=== PATIENT | male | born 2000 | race African-American/Black ===

== ENCOUNTER 2024-04-18 08:50 | Outpatient (REF) | payer OTHER, SELFPAY ==
--- NOTE | ~2024-04-18 | XR_ITS ---
EXAMINATION: XR HAND, RIGHT CLINICAL INFORMATION: Right hand pain. COMPARISON: None available. TECHNIQUE: PA, lateral, and oblique views of the right hand. FINDINGS: The bones and soft tissues are normal. No fracture. Alignment is anatomic. Joint spaces are maintained. No erosions or soft tissue calcifications. XR/XR hand RT min 3V IMPRESSION: Normal right hand radiographs.
== END 2024-04-18 08:51 | disposition home or self-care (01) ==
LOC: HO.HOSX 08:50
PROVIDERS: Visit Provider Physician Assistant
DX: S63.404A Traumatic rupture of unspecified ligament of right ring finger at metacarpophalangeal and interphalangeal joint, initial encounter (principal)
CPT/HCPCS: 73130; 99202

== ENCOUNTER 2024-04-18 14:38 | Outpatient (AMB) | payer OTHER, SELFPAY ==
--- NOTE | 2024-04-18 14:56 | MHC.OFFVIS ---
Vital Signs 04/18/24 15:00 Height 5 ft 6.5 in Weight 220 lb BMI 35.0 Intake Visit Reasons: New Pt - Right 4th Digit, Jammed Finger Intake Note: Susanne a 23 year old right hand dominant male who presents today for an evaluation of right 4th digit. Patient reports towards the end of December he was playing basketball when he jammed while catching the ball. No previous tx. He continues to have ongoing pain in his whole finger as well as weakness. Denies any numbness or tingling. Allergies No Known Allergies [No Known Allergies*] Allergy (Unverified 04/18/24 15:03) Medication List - Last Reconciled 04/18/24 by Andrew Tipton PA-C No Known Home Meds HPI HPI New Pt - Right 4th Digit, Jammed Finger: Details: 23-year-old right hand dominant male who presents to the office today for evaluation of right 4th injury during end of December after jamming the finger while catching the ball during a basketball game. He continues to have ongoing pain in his whole finger as well as swelling and weakness. He is unable to extend his finger due to the pain. He denies any numbness or tingling. He has not had any treatment in the past. [facility] Social History (Updated 04/18/24 @ 14:59 by JAYDEN River) Patient Tobacco Use Status: Never used Tobacco Current occupational status: employed Current occupation: finacial advisor, right hand dominant Review of Systems Const All systems reviewed & are unremarkable except as noted in HPI and below Physical Exam Vital Signs: BMI result Body Mass Index 35.0 Const General: cooperative, healthy appearing, comfortable, no acute distress, well developed and alert Orientation/consciousness: patient oriented x3 HEENT Head: Yes normal to inspection, Yes normocephalic and Yes atraumatic Eyes General: appearance normal, both eyes and all related structures Resp Effort & Inspection: normal respiratory effort and able to speak in complete sentences Cardio Rate: regular rate Peripheral pulses: Peripheral pulses 2+ throughout GI Palpation (GI): Soft to palpation Skin Lesions: no lesions Rashes: no rashes Neuro General: patient oriented x3 Extrem Other: Right ring finger: Normal to inspection with minimal swelling along the radial aspect of the PIP joint. Mild discomfort with stress testing. He can make a full fist and fully extend digits. NVI. Results Reviewed Results Reviewed: Xrays were obtained in the office today and personally reviewed by me of the right hand are negative for acute fracture or dislocations. Assessment & Plan Assessment & Plan (1) Traumatic rupture of ligament of right ring finger: Code(s): S63.404A - Traumatic rupture of unspecified ligament of right ring finger at metacarpophalangeal and interphalangeal joint, initial encounter Category: Medical Qualifiers: Encounter type: initial encounter Qualified Code(s): S63.404A - Traumatic rupture of unspecified ligament of right ring finger at metacarpophalangeal and interphalangeal joint, initial encounter Plan Injury occurred approximately 3 months ago therefore I feel as though any ligamentous injury that initially occurred has scarred down. He will begin a course of occupational therapy to work on ROM and soda fountain operator strengthening. He can increase activity as tolerated and see back as needed. Orders: Orders XR hand RT min 3V Today M79.641 - Pain in right hand OT Evaluation and Treatment Today S63.404A - Traumatic rupture of unspecified ligament of right ring finger at metacarpophalangeal and interphalangeal joint, initial encounter Patient Instructions: Scribed for Andrew Tipton PA-C, by [facility] biller, on 04/18/2024 at 2:30 PM EST.? I, Andrew Tipton PA-C, have personally reviewed and agree with the information entered by the scribe. Coding Level of Care Code New Pt Level 3 (81986) Diagnoses Traumatic rupture of ligament of right ring finger, initial encounter S63.404A Encounter type: initial encounter
[2024-04-18 15:00] VITALS: BMI 35.0
--- OUTSIDE RECORDS SUMMARY | 2024-04-18 18:17 | XMS_ITS | Continuity of Care Document ---
Author Organization [facility] ter Address [address] [place] [address]- Care Team Providers Care Communications And Signals Supervisor Name Role Phone Vicki Adbi NP Primary Care Physician Encounter [facility] Date(s): 05/29/21 - 05/29/[address] [address]- Encounter Diagnosis Nasal bone fractures(Final) - 05/29/21 Discharge Disposition: A-D/C Home Attending Physician: Nnamdi Peterson DO Admitting Physician: Nnamdi Peterson DO Referring Physician: Not on Staff, Referring MD Allergies, Adverse Reactions, Alerts Substance Reaction Severity Status NKA Active Immunizations Given and Recorded Vaccine Date Status Refusal Reason influenza virus vaccine, inactivated 01/29/20 Give n influenza virus vaccine, inactivated 08/06/16 Give n influenza virus vaccine, inactivated 1 11/27/12 Gi deni Human Papillomavirus Vaccine 2 08/06/16 Given Human Papillomavirus Vaccine 3 05/26/15 Given Human Papillomavirus Vaccine 4 03/07/15 Given Meningococcal Conjugate Vaccine 5 08/06/16 Given Hepatitis A Pediatric Vaccine 6 08/06/16 Given Hepatitis A Pediatric Vaccine 7 03/07/15 Given Varicella Virus Vaccine 8 11/27/12 Given Varicella Virus Vaccine 9 06/30/00 Given Meningococcal Polysaccharide Vaccine 10 02/09/11 G iven tetanus-diphtheria toxoids (Td) 03/01/10 Given influ virus vac, H1N1, inactive(oldterm) 11 10/02/09 Given FluMist (oldterm) 12 10/02/09 Given Diphth/Pertussis,Acel/Tetanus (oldterm) 13 07/31/03 Given Diphth/Pertussis,Acel/Tetanus (oldterm) 14 02/23/01 Given Diphth/Pertussis,Acel/Tetanus (oldterm) 15 03/01/00 Given Diphth/Pertussis,Acel/Tetanus (oldterm) 16 99 Given Diphth/Pertussis,Acel/Tetanus (oldterm) 17 99 Given Measles/Mumps/Rubella Virus Vaccine 18 05/20/03 Gi deni Measles/Mumps/Rubella Virus Vaccine 19 06/30/00 Gi deni Poliovirus Vaccine, Inactivated 20 05/20/03 Given Poliovirus Vaccine, Inactivated 21 03/01/00 Given Poliovirus Vaccine, Inactivated 22 99 Given Poliovirus Vaccine, Inactivated 23 99 Given Haemophilus B Conj Vaccine (oldterm) 24 09/19/00 G iven Haemophilus B Conj Vaccine (oldterm) 25 03/01/00 G iven Haemophilus B Conj Vaccine (oldterm) 26 99 G iven Haemophilus B Conj Vaccine (oldterm) 27 99 G iven Hepatitis B Vaccine (old term) 28 03/01/00 Given Hepatitis B Vaccine (old term) 29 99 Given Hepatitis B Vaccine (old term) 30 99 Given 1Admin Note: vis 05/29/2012 Fluzone 2Result Comment: [08/06/2016] LOWER ARM 3Result Comment: [05/26/2015] ORDERED BY GABBY CONTEH MD 4Result Comment: [03/10/2015] ordered by Gabby conteh MD 5Result Comment: [08/06/2016] LOWER ARM 6Result Comment: [08/06/2016] upper arm 7Result Comment: [03/10/2015] ordered by Gabby Conteh MD 8Admin Note: VARIVAX/VARICELLA #2 9Admin Note: ADM BY RN 10Admin Note: Vis 12/05 given 11Admin Note: Vis given 12Admin Note: vis given 13Admin Note: ADM BY RN 14Admin Note: ADM BY RN 15Admin Note: ADM BY RN 16Admin Note: ADM BY RN 17Admin Note: ADM BY RN 18Admin Note: ADM BY RN 19Admin Note: ADM BY RN 20Admin Note: ADM BY RN 21Admin Note: ADM BY RN 22Admin Note: ADM BY RN 23Admin Note: ADM BY RN 24Admin Note: ADM BY RN 25Admin Note: ADM BY RN 26Admin Note: ADM BY RN 27Admin Note: ADM BY RN 28Admin Note: ADM BY RN 29Admin Note: ADM BY RN 30Admin Note: ADM BY RN Medications cetirizine 10 mg oral tablet 1 tablet, By Mouth, Daily, PRN NEEDED FOR ALLERGY SYMPTOMS, # 90 tablet, 0 Refills, Maintenance,05/25/21 7:47:00 EDT, [facility], 169, cm, 04/02/21 11:30:00 EDT, Height Start Date: 05/25/21 Status: Ordered Problem List Condition Effective Dates Status Health Status Inform ant Childhood obesity(Confirmed) Active School failure(Confirmed) Active Healthcare maintenance(Confirmed) Active Results Radiology Reports * Exam Date Time Procedure Performing Provider Status 05/29/21 5:05 PM Nasal Bone Comp Min 3 Views Jono Villalta; Tish (Verified) Notes: (Nasal Bone Comp Min 3 Views) Reason For Exam: Other: RESULT: Nasal Bone Comp Min 3 Views Nasal Bone Comp Min 3 Views Hx of Present Illness: Nose injury. Patient struck by another person's elbow while playing basketball 30 minutes [place].; Reason: Other:; Clinical Question(s): Fracture COMPARISON: None TECHNIQUE: 4 views of the paranasal sinuses. FINDINGS: Nondisplaced bilateral nasal bone fractures. Sinus air-fluid levels. Orbital polo are intact. IMPRESSION: Nondisplaced bilateral nasal bone fractures. WSN: [id number] Ordering Physician: Jone Motta Dictated By: Basil Luna MD Dictated Date/Time: 05/29/21 5:08 pm Reviewed By: Basil Luna MD Signed By: Basil Luna MD Signed Date/Time: 05/29/21 5:08 pm Transcribed By: YOAN Transcribed Date/Time: 05/29/21 5:06 pm Vital Signs Most recent to oldest [Reference Range]: 1 2 3 Oxygen Saturation [94-100 %] 100 % (05/29/21 6:22 PM) 96 % (05/29/21 4:01 PM) 100 % (05/29/21 3:54 PM) Pulse Rate [55-90 bpm] 62 bpm (05/29/21 6:22 PM) 91 bpm *H* (05/29/21 4:01 PM) 108 bpm *H* (05/29/21 3:54 PM) Blood Pressure [90-138/55-84 mm Hg] 119/61mm Hg (05/29/21 6:22 PM) 133/72mm Hg (05/29/21 4:01 PM) Respiratory Rate [16-30 br/min] 16 br/min (05/29/21 6:22 PM) 18 br/min (05/29/21 4:01 PM) Temperature [96.8-100.4 DegF] 97.7 DegF (05/29/21 6:22 PM) 98.8 DegF (05/29/21 4:01 PM) Mode of Delivery (Oxygen) Room air (05/29/21 6:22 PM) Room air (05/29/21 4:01 PM) Room air (05/29/21 3:54 PM) Temperature Route Oral (05/29/21 6:22 PM) Oral (05/29/21 4:01 PM) Social History Social History Type Response Smoking Status Never smoker; Tobacc o user in household: No entered on: 07/30/14 Sex
--- OUTSIDE RECORDS SUMMARY | 2024-04-18 18:17 | XMS_ITS | Continuity of Care Document ---
Author Organization [facility] Address [address] [place] [address]- Care Team Providers Care Air Launch Weapons Technician Name Role Phone Jin ODOM, Vicki Primary Care Physician [phone] Encounter [facility] Date(s): 10/09/20 - 11/08/20 [facility]/[address] [address]- Allergies, Adverse Reactions, Alerts Substance Reaction Severity [...] BY RN 30Admin Note: ADM BY RN Problem List Condition Effective Dates Status Health Status Inform ant Childhood obesity(Confirmed) Active School failure(Confirmed) Active Healthcare maintenance(Confirmed) Active Social History Social History Type Response Smoking Status Never smoker; Tobacc o user in household: No entered on: 07/30/14 Sex
--- OUTSIDE RECORDS SUMMARY | 2024-04-18 18:17 | XMS_ITS | Continuity of Care Document ---
Author Organization [facility] Address [address] [place] [address]- Care Team Providers Care Long Term Care Administrator Name Role Phone Jin CHEMICAL LABORATORY CHIEF, Vicki Primary Care Physician Encounter [facility] Date(s): 06/10/21 - 07/10/21 [facility]/[address] [address]- Allergies, Adverse Reactions, Alerts Substance Reaction Severity Status NKA Active Immunizations Given and Recorded Vaccine Date Status Refusal Reason tetanus/diphtheria/pertussis, acel(Tdap) 06/05/21 Given SARS-CoV-2 (COVID-19) mRNA BNT-162b2 vac 05/01/21 Recorded SARS-CoV-2 (COVID-19) mRNA BNT-162b2 vac 04/10/21 Recorded influenza virus vaccine, inactivated 01/29/20 Give n influenza virus vaccine, inactivated 08/06/16 Give n influenza virus vaccine, inactivated 1 11/27/12 Gi dein Human Papillomavirus Vaccine 2 08/06/16 Given Human [...] ARM 3Result Comment: [05/26/2015] ORDERED BY GABBY GALLAGHER MD 4Result Comment: [03/10/2015] ordered by Gabby gallagher MD 5Result Comment: [08/06/2016] LOWER ARM 6Result Comment: [08/06/2016] upper arm 7Result Comment: [03/10/2015] ordered by Gabby Gallagher MD 8Admin Note: VARIVAX/VARICELLA #2 9Admin Note: [...] 0 Refills, Maintenance,05/25/21 7:47:00 EDT, [facility], 169, cm, 04/02/21 11:30:00 EDT, Height Start Date: 05/25/21 Status: Ordered Problem List Condition Effective Dates Status Health Status Inform ant Childhood obesity(Confirmed) Active School failure(Confirmed) Active Healthcare maintenance(Confirmed) Active Social History Social History Type Response Smoking Status Never smoker; Tobacc o user in household: No entered on: 07/30/14 Sex
--- OUTSIDE RECORDS SUMMARY | 2024-04-18 18:17 | XMS_ITS | Continuity of Care Document ---
Author Organization [facility] Address [address] [place] [address]- Care Team Providers Care Functional Skills Tutor Name Role Phone Jin ODOM, Vicki Primary Care Physician Encounter [facility] Date(s): 10/13/20 - 11/12/[address] [address]- Attending Physician: Admkleber, Sammi Admitting Physician: AdmtrSammi Referring Physician: Admtr, Ar8 Allergies, Adverse Reactions, Alerts Substance Reaction Severity [...]
--- OUTSIDE RECORDS SUMMARY | 2024-04-18 18:17 | XMS_ITS | Continuity of Care Document ---
Author Organization [facility] Address [address] [place] [address]- Care Team Providers Care Obstetrics Teacher Name Role Phone Jin ODOM, Vicki Primary Care Physician [phone] Encounter [facility] Date(s): 02/01/24 - 03/02/24 [facility]/[address] [address]- Allergies, Adverse Reactions, Alerts No Known Allergies Immunizations Given and Recorded Vaccine Date Status Refusal Reason influenza virus vaccine, inactivated 02/01/24 Give n influenza virus vaccine, inactivated 01/19/22 Angel rded influenza virus vaccine, inactivated 01/29/20 Give n influenza virus vaccine, inactivated 08/06/16 Give n influenza virus vaccine, inactivated 1 11/27/12 Gi deni SARS-CoV-2 mRNA ([id number]) vax 02/09/22 Recorded tetanus/diphtheria/pertussis, acel(Tdap) 06/05/21 Given tetanus/diphtheria/pertussis, acel(Tdap) 04/08/15 Recorded SARS-CoV-2 (COVID-19) mRNA BNT-162b2 vac 05/01/21 Recorded SARS-CoV-2 (COVID-19) mRNA BNT-162b2 vac 04/10/21 Recorded Human Papillomavirus Vaccine 2 08/06/16 Given Human [...] 0 Refills, Maintenance,05/25/21 7:47:00 EDT, [facility], 169, cm, 04/02/21 11:30:00 EDT, Height Start Date: 05/25/21 Status: Ordered diclofenac sodium 75 mg oral delayed release tablet 1 tablet = 75 mg, By Mouth, 2 times a day, with food, # 42 tablet, 0 Refills, Maintenance, 10/05/2114:49:00 EST, EC Tablet, [id number], Partial fill upon patient request if the prescription is for a schedule II opioid drug., 169, cm, 10/05/21... Start Date: 10/05/21 Stop Date: 10/26/21 Status: Ordered ibuprofen 600 mg oral tablet 600 mg, 1, tablet, By Mouth, 4 times a day, PRN, with food or milk, # 30 tablet, Refills 0, Tot. Refills 0, Maintenance, Pain , Moderate, 03/17/23 17:33:00 EDT, Route to Pharmacy Electronically, [facility]/pharmacy #[id number], Partial fill upon patient request if... Start Date: 03/17/23 Status: Ordered Problem List Condition Confirmation Course Effective Dates Status Health St atus Informant Acanthosis nigricans Confirmed Active Childhood obesity Confirmed Active School failure Confirmed Active Healthcare maintenance Confirmed Active Obese class I Confirmed Active Social History Social History Type Response Smoking Status Never smoker; Tobacc o user in household: No entered on: 07/30/14 Sex Male Patient Care team information Care Team Personnel Name: Vicki Abdi NP Position: [facility] PCO Associate Professional Member Role: PCP Address: Address: [address] [place] [address]- Care Team Related Persons Name: TIFFANIE FERGUSONRA Address: home [address] [address]
--- OUTSIDE RECORDS SUMMARY | 2024-04-18 18:17 | XMS_ITS | Continuity of Care Document ---
Author Organization [facility] Address [address] [place] [address]- Care Team Providers Care Data Collection Technician Name Role Phone Vicki Abdi NP Primary Care Physician [phone] [place] [facility] [place] 02/23/23 - 03/25/23 [facility]/[place] [address]- [place] Allergies, Adverse Reactions, Alerts No Known Allergies Immunizations Given and Recorded Vaccine Date Status Refusal Reason influenza virus vaccine, inactivated 01/19/22 Angel rded influenza virus vaccine, inactivated 01/29/20 Give n influenza virus vaccine, inactivated 08/06/16 Give n influenza virus vaccine, inactivated 1 11/27/12 Gi deni tetanus/diphtheria/pertussis, acel(Tdap) 06/05/21 Given SARS-CoV-2 (COVID-19) mRNA [...] Given Measles/Mumps/Rubella Virus Vaccine 18 05/20/03 Gi edni Measles/Mumps/Rubella Virus Vaccine 19 06/30/00 Gi deni [...] 0 Refills, Maintenance,05/25/21 7:47:00 EDT, [facility], 169, cm, 04/02/21 11:30:00 EDT, Height Start [...] 03/17/23 17:33:00 EDT, Route to Pharmacy Electronically, [facility]/pharmacy #[id number], Partial fill upon patient request if... Start Date: 03/17/23 Status: Ordered Problem List Condition Confirmation Course Effective Dates Status Health St atus Informant Childhood obesity Confirmed Active School failure Confirmed Active Healthcare maintenance Confirmed Active Obese class II Confirmed Active Social History Social History Type Response Smoking Status Never smoker; Tobacc o user in household: No entered on: 07/30/14 Sex Male Patient Care team information Care Team Personnel Name: Vicki Abdi NP Position: S PCO Associate Professional Member Role: PCP Address: Address: [address] [place] [address]- Care Team Related Persons Name: NORIS FERGUSON Address: home [address] [place] [address]
--- OUTSIDE RECORDS SUMMARY | 2024-04-18 18:18 | XMS_ITS | Continuity of Care Document ---
Author Organization [facility] Address [address] [place] [address]- Care Team Providers Care Senior Environmental Engineer Name Role Phone Jin ODOM, Vicki Primary Care Physician [place] [facility] [place] [facility] [place] [id number] Date(s): 11/08/23 - 12/08/23 [facility]/[place] [address]- Attending Physician: Israel Orozco MD, I Admitting Physician: Israel Orozco MD, I Allergies, Adverse Reactions, Alerts No Known Allergies [...] 0 Refills, Maintenance,05/25/21 7:47:00 EDT, [facility], 169, cm, 04/02/21 11:30:00 EDT, Height Start [...] 03/17/23 17:33:00 EDT, Route to Pharmacy Electronically, [facility]/pharmacy #[id number], Partial fill upon patient request [...] Associate Professional Member Role: PCP Address: Address: [address] [place] [address] Care Team Related Persons Name: NORIS FERGUSON Address: home [address] [address]
--- OUTSIDE RECORDS SUMMARY | 2024-04-18 18:18 | XMS_ITS | Continuity of Care Document ---
Author Organization [facility] Address [address] [place] [address]- Care Team Providers Care Composition Weatherboard Installer Name Role Phone Vicki Abdi NP Primary Care Physician Encounter [facility] Date(s): 09/25/21 - 11/25/[address] [address]- Discharge Disposition: A-D/C Home Attending Physician: Vicki Abdi NP Admitting Physician: Vicki Abdi NP Referring Physician: Vicki Abdi NP Allergies, Adverse Reactions, Alerts Substance Reaction Severity [...] 0 Refills, Maintenance,05/25/21 7:47:00 EDT, [facility], 169, cm, 04/02/21 11:30:00 EDT, Height Start Date: 05/25/21 Status: Ordered diclofenac sodium 75 mg oral delayed release tablet 1 tablet = 75 mg, By Mouth, 2 times a day, with food, # 42 tablet, 0 Refills, Maintenance, 10/05/2114:49:00 EST, EC Tablet, [facility]/pharmacy #[id number], Partial fill upon patient request if the prescription is for a schedule II opioid drug., 169, cm, 10/05/21... Start Date: 10/05/21 Stop Date: 10/26/21 Status: Ordered Sudafed 12-Hour 120 mg oral tablet, extended release 1 tablet = 120 mg, By Mouth, Every 12 hours, PRN as needed for cold symptoms, # 20 tablet, 0 Refills, Acute 10/17/22 12:34:00 EST, 10/16/21 12:34:00 EST, ER Tablet, [facility]/pharmacy #[id number], Partial fill upon patient request if the prescription is for a edelmira... Start Date: 10/16/21 Stop Date: 10/17/22 Status: Ordered Problem List Condition Effective Dates Status Health Status Inform ant Childhood obesity(Confirmed) Active School failure(Confirmed) Active Healthcare maintenance(Confirmed) Active Social History Social History Type Response Smoking Status Never smoker; Tobacc o user in household: No entered on: 07/30/14 Sex
--- OUTSIDE RECORDS SUMMARY | 2024-04-18 18:18 | XMS_ITS | Continuity of Care Document ---
Author Organization [facility] Address Unknown Care Team Providers Care Forepart Laster Name Role Phone Jin ODOM, Vicki Primary Care Physician En[place] [facility] [place] Date(s): 10/16/21 - 11/15/21 [facility] Attending Physician: trSammi Allergies, Adverse Reactions, Alerts Substance Reaction Severity [...] 0 Refills, Maintenance,05/25/21 7:47:00 EDT, [facility], 169, cm, 04/02/21 11:30:00 EDT, Height Start Date: 05/25/21 Status: Ordered diclofenac sodium 75 mg oral delayed release tablet 1 tablet = 75 mg, By Mouth, 2 times a day, with food, # 42 tablet, 0 Refills, Maintenance, 10/05/2114:49:00 EST, EC Tablet, [facility]/pharmacy #[id number], Partial fill upon patient request if [...] 12:34:00 EST, 10/16/21 12:34:00 EST, ER Tablet, [facility]/pharmacy #[id number], Partial fill upon patient request if [...]
--- OUTSIDE RECORDS SUMMARY | 2024-04-18 18:18 | XMS_ITS | Continuity of Care Document ---
Author Organization [facility] Address [address] [place] [address]- Care Team Providers Care Photo Lab Manager Name Role Phone Jin ODOM, Vicki Primary Care Physician Encounter [facility] Date(s): 10/09/20 - 11/08/20 [facility]/[address] [address]- Allergies, Adverse Reactions, Alerts Substance Reaction Severity [...]
--- OUTSIDE RECORDS SUMMARY | 2024-04-18 18:18 | XMS_ITS | Continuity of Care Document ---
Author Organization [facility] ter Address [address] [place] [address]- Care Team Providers Care Blood Splatter Analyst Name Role Phone Vicki Abdi NP Primary Care Physician Encounter [facility] Date(s): 11/22/21 - 11/22/[address] [address]- Encounter Diagnosis COVID-19 virus detected(Final) - 11/22/21 Discharge Disposition: A-D/C Home Attending Physician: Danya Dodd MD Admitting Physician: Danya Dodd MD Referring Physician: Not on Staff, Referring MD [...] 0 Refills, Maintenance,05/25/21 7:47:00 EDT, [facility], 169, cm, 04/02/21 11:30:00 EDT, Height Start [...] 12:34:00 EST, 10/16/21 12:34:00 EST, ER Tablet, [id number], Partial fill upon patient request if the prescription is for a edelmira... Start Date: 10/16/21 Stop Date: 10/17/22 Status: Ordered Problem List Condition Effective Dates Status Health Status Inform ant Childhood obesity(Confirmed) Active School failure(Confirmed) Active Healthcare maintenance(Confirmed) Active Vital Signs Most recent to oldest [Reference Range]: 1 2 3 Oxygen Saturation [94-100 %] 98 % (11/22/21 8:16 PM) 99 % (11/22/21 2:31 PM) 100 % (11/22/21 2:09 PM) Pulse Rate [55-90 bpm] 88 bpm (11/22/21 8:16 PM) 86 bpm (11/22/21 2:31 PM) 91 bpm *H* (11/22/21 2:09 PM) Blood Pressure [90-138/55-84 mm Hg] 128/74mm Hg (11/22/21 8:16 PM) 124/64mm Hg (11/22/21 2:31 PM) Respiratory Rate [16-30 br/min] 16 br/min (11/22/21 8:16 PM) 16 br/min (11/22/21 2:31 PM) Temperature [96.8-100.4 DegF] 99.8 DegF (11/22/21 2:31 PM) Mode of Delivery (Oxygen) Room air (11/22/21 8:16 PM) Room air (11/22/21 2:31 PM) Room air (11/22/21 2:09 PM) Temperature Route Oral (11/22/21 2:31 PM) Social History Social History Type Response Smoking Status Never smoker; Tobacc o user in household: No entered on: 07/30/14 Sex
--- OUTSIDE RECORDS SUMMARY | 2024-04-18 18:18 | XMS_ITS | Continuity of Care Document ---
Author Organization [facility] Address [address] [place] [address]- Care Team Providers Care Piece Dye Worker Name Role Phone Jin ODOM, Vicki Primary Care Physician Encounter [facility] [place] Date(s): 08/04/23 - 09/03/23 [facility] [address], [place] [address] Attending Physician: Sammi Hernandez Admitting Physician: AdmtrSammi Referring Physician: Admtr ArBayron Allergies, Adverse Reactions, Alerts No Known Allergies [...] 0 Refills, Maintenance,05/25/21 7:47:00 EDT, [facility], 169, cm, 04/02/21 11:30:00 EDT, Height Start Date: 05/25/21 Status: Ordered diclofenac sodium 75 mg oral delayed release tablet 1 tablet = 75 mg, By Mouth, 2 times a day, with food, # 42 tablet, 0 Refills, Maintenance, 10/05/2114:49:00 EST, EC Tablet, [facility]/pharmacy #[id number], Partial fill upon patient request if [...] 03/17/23 17:33:00 EDT, Route to Pharmacy Electronically, [facility]/pharmacy #[id number], Partial fill upon patient request if... [...] Associate Professional Member Role: PCP Address: Address: [address] [place] [address] Care Team Related Persons Name: NORIS FERGUSON Address: home [address] [address]
--- OUTSIDE RECORDS SUMMARY | 2024-04-18 18:18 | XMS_ITS | Continuity of Care Document ---
Author Organization [facility] Address [address] [place] [address]- Care Team Providers Care Daycare Provider Name Role Phone Vicki Abdi NP Primary Care Physician [place] [facility] [place] 10/02/21 - 11/01/[address] [address]- Attending Physician: Sammi Hernandez Admitting Physician: Admtr, Sammi Referring Physician: Admtr, Ar8 Allergies, Adverse Reactions, [...] 0 Refills, Maintenance,05/25/21 7:47:00 EDT, [facility], 169, cm, 04/02/21 11:30:00 EDT, Height Start Date: 05/25/21 Status: Ordered diclofenac sodium 75 mg oral delayed release tablet 1 tablet = 75 mg, By Mouth, 2 times a day, with food, # 42 tablet, 0 Refills, Maintenance, 10/05/2114:49:00 EST, EC Tablet, [facility]/pharmacy #[id number], Partial fill upon patient request if [...] 12:34:00 EST, 10/16/21 12:34:00 EST, ER Tablet, [facility]/pharmacy #[id number], Partial fill upon patient request if [...]
--- OUTSIDE RECORDS SUMMARY | 2024-04-18 18:18 | XMS_ITS | Continuity of Care Document ---
Author Organization [facility] Address Unknown Care Team Providers Care Hide Inspector Name Role Phone Jin ODOM, Vicki Primary Care Physician En[place] [facility] [place] Date(s): 08/06/21 - 09/06/21 [facility] Attending Physician: Liv Kaur MD Admitting Physician: Liv Kaur MD Allergies, Adverse Reactions, Alerts Substance Reaction [...] 0 Refills, Maintenance,05/25/21 7:47:00 EDT, [facility], 169, cm, 04/02/21 11:30:00 EDT, Height Start Date: 05/25/21 Status: Ordered Problem List Condition Effective Dates Status Health Status Inform ant Childhood obesity(Confirmed) Active School failure(Confirmed) Active Healthcare maintenance(Confirmed) Active Social History Social History Type Response Smoking Status Never smoker; Tobacc o user in household: No entered on: 07/30/14 Sex
--- OUTSIDE RECORDS SUMMARY | 2024-04-18 18:18 | XMS_ITS | Continuity of Care Document ---
Author Organization [facility] Address Unknown Care Team Providers Care Metal Sash Setter Name Role Phone Jin ODOM, Vicki Primary Care Physician [place] [facility] [place] Date(s): 06/30/21 - 07/30/21 [facility] Allergies, Adverse Reactions, Alerts Substance Reaction Severity [...] 0 Refills, Maintenance,05/25/21 7:47:00 EDT, [facility], 169, cm, 04/02/21 11:30:00 EDT, Height Start Date: 05/25/21 Status: Ordered Problem List Condition Effective Dates Status Health Status Inform ant Childhood obesity(Confirmed) Active School failure(Confirmed) Active Healthcare maintenance(Confirmed) Active Social History Social History Type Response Smoking Status Never smoker; Tobacc o user in household: No entered on: 07/30/14 Sex
--- OUTSIDE RECORDS SUMMARY | 2024-04-18 18:18 | XMS_ITS | Continuity of Care Document ---
Author Organization [facility] Address [address] [place] [address]- Care Team Providers Care Material Man Name Role Phone Vicki Abdi NP Primary Care Physician [id number] Date(s): 08/04/23 - 08/11/23 [facility] [address], [place] [address] Attending Physician: Lyle Triplett MD Referring Physician: Vicki Abdi NP Allergies, Adverse Reactions, Alerts No Known Allergies [...] 0 Refills, Maintenance,05/25/21 7:47:00 EDT, [facility], 169, cm, 04/02/21 11:30:00 EDT, Height Start Date: 05/25/21 Status: Ordered diclofenac sodium 75 mg oral delayed release tablet 1 tablet = 75 mg, By Mouth, 2 times a day, with food, # 42 tablet, 0 Refills, Maintenance, 10/05/2114:49:00 EST, EC Tablet, [facility]/pharmacy #[id number], Partial fill upon patient request if [...] 17:33:00 EDT, Route to Pharmacy Electronically, [facility]/pharmacy #[id number], Partial fill upon patient request if... Start Date: 03/17/23 Status: Ordered Problem List Condition Confirmation Course Effective Dates Status Health St atus Informant Childhood obesity Confirmed Active School failure Confirmed Active Healthcare maintenance Confirmed Active Obese class II Confirmed Active Vital Signs Most recent to oldest [Reference Range]: 1 Height 169 cm (08/04/23 3:43 PM) Oxygen Saturation [94-100 %] 100 % (08/04/23 3:43 PM) Pulse Rate [55-90 bpm] 80 bpm (08/04/23 3:43 PM) Blood Pressure [90-138/55-84 mm Hg] 116/ 59mm Hg (08/04/23 3:43 PM) Respiratory Rate [16-30 br/min] 20 br/mi n (08/04/23 3:43 PM) Mode of Delivery (Oxygen) Room air (08/04/23 3:43 PM) Blood pressure sites Arm, right (08/04/23 3:43 PM) Temperature Route Temporal (08/04/23 3:43 PM) Social History Social History Type Response Smoking Status Never smoker; Tobacc o user in household: No entered on: 07/30/14 Sex Male Patient Care team information Care Team Personnel Name: Vicki Abdi NP Position: S PCO Associate Professional Member Role: PCP Address: Address: [address] [place] [address]- Care Team Related Persons Name: NORIS FERGUSON Address: home [address] [place] [address]
--- OUTSIDE RECORDS SUMMARY | 2024-04-18 18:18 | XMS_ITS | Continuity of Care Document ---
Author Organization [facility] Address [address] [place] [address]- Care Team Providers Care Stunt Driver Name Role Phone Jin STONE SANDBLASTER, Vicki Primary Care Physician Encounter [facility] Date(s): 06/11/21 - 07/11/21 [facility]/[address] [address]- Allergies, Adverse Reactions, Alerts Substance Reaction Severity [...] 0 Refills, Maintenance,05/25/21 7:47:00 EDT, [facility], 169, cm, 04/02/21 11:30:00 EDT, Height Start Date: 05/25/21 Status: Ordered Problem List Condition Effective Dates Status Health Status Inform ant Childhood obesity(Confirmed) Active School failure(Confirmed) Active Healthcare maintenance(Confirmed) Active Social History Social History Type Response Smoking Status Never smoker; Tobacc o user in household: No entered on: 07/30/14 Sex
--- OUTSIDE RECORDS SUMMARY | 2024-04-18 18:18 | XMS_ITS | Continuity of Care Document ---
Author Organization [facility] Address Unknown Care Team Providers Care Audit Control Clerk Name Role Phone Jin ODOM, Vicki Primary Care Physician En[place] [facility] [place] Date(s): 04/22/22 - 05/22/22 [facility] Allergies, Adverse Reactions, Alerts No Known Allergies [...] 0 Refills, Maintenance,05/25/21 7:47:00 EDT, [facility], 169, cm, 04/02/21 11:30:00 EDT, Height Start Date: 05/25/21 Status: Ordered diclofenac sodium 75 mg oral delayed release tablet 1 tablet = 75 mg, By Mouth, 2 times a day, with food, # 42 tablet, 0 Refills, Maintenance, 10/05/2114:49:00 EST, EC Tablet, [facility]/pharmacy #[id number], Partial fill upon patient request [...] 12:34:00 EST, 10/16/21 12:34:00 EST, ER Tablet, [facility]/pharmacy #[id number], Partial fill upon patient request if the prescription is for a edelmira... Start Date: 10/16/21 Stop Date: 10/17/22 Status: Ordered Problem List Condition Effective Dates Status Health Status Inform ant Childhood obesity(Confirmed) Active School failure(Confirmed) Active Healthcare maintenance(Confirmed) Active Obese class II(Confirmed) Active Social History Social History Type Response Smoking Status Never smoker; Tobacc o user in household: No entered on: 07/30/14 Sex Male
--- OUTSIDE RECORDS SUMMARY | 2024-04-18 18:18 | XMS_ITS | Continuity of Care Document ---
Author Organization [facility] Address Unknown Care Team Providers Care Restaurant Line Server Name Role Phone Jin ODOM, Vicki Primary Care Physician [phone] [place] [facility] [place] Date(s): 04/22/22 - 05/22/22 [facility] Attending Physician: Sammi Hernandez Allergies, Adverse Reactions, Alerts No Known Allergies [...] 0 Refills, Maintenance,05/25/21 7:47:00 EDT, [facility], 169, cm, 04/02/21 11:30:00 EDT, Height Start Date: 05/25/21 Status: Ordered diclofenac sodium 75 mg oral delayed release tablet 1 tablet = 75 mg, By Mouth, 2 times a day, with food, # 42 tablet, 0 Refills, Maintenance, 10/05/2114:49:00 EST, EC Tablet, [facility]/pharmacy #[id number], Partial fill upon patient request if [...] 12:34:00 EST, 10/16/21 12:34:00 EST, ER Tablet, [facility]/pharmacy #[id number], Partial fill upon patient request if [...]
--- OUTSIDE RECORDS SUMMARY | 2024-04-18 18:18 | XMS_ITS | Continuity of Care Document ---
Author Organization [facility] Address [address] [place] [address]- Care Team Providers Care Lens Inserter Name Role Phone Jin ODOM, Vicki Primary Care Physician En[place] [facility] [place] Date(s): 09/12/21 - 09/12/[address] [address]- Discharge Disposition: A-D/C Walkout Attending Physician: Not on Staff, Attending MD Admitting Physician: Not on Staff, Admitting MD Referring Physician: Not on Staff, Referring [...] ADM BY RN 25Admin Note: ADM BY JASON 26Admin Note: ADM BY RN 27Admin Note: ADM BY JASON 28Admin Note: ADM BY JASON 29Admin Note: ADM BY RN 30Admin Note: ADM BY RN Medications cetirizine 10 mg oral tablet 1 tablet, By Mouth, Daily, PRN NEEDED FOR ALLERGY SYMPTOMS, # 90 tablet, 0 Refills, Maintenance,05/25/21 7:47:00 EDT, [facility], 169, cm, 04/02/21 11:30:00 EDT, Height Start Date: 05/25/21 Status: Ordered Problem List Condition Effective Dates Status Health Status Inform ant Childhood obesity(Confirmed) Active School failure(Confirmed) Active Healthcare maintenance(Confirmed) Active Vital Signs Most recent to oldest [Reference Range]: 1 2 Oxygen Saturation [94-100 %] 98 % (09/12/21 9:34 PM) 99 % (09/12/21 9:19 PM) Pulse Rate [55-90 bpm] 109 bpm *H* (09/12/21 9:34 PM) 100 bpm *H* (09/12/21 9:19 PM) Blood Pressure [90-138/55-84 mm Hg] 124/ 67mm Hg (09/12/21 9:34 PM) Respiratory Rate [16-30 br/min] 20 br/mi n (09/12/21 9:34 PM) 18 br/min (09/12/21 9:19 PM) Temperature [96.8-100.4 DegF] 100.9 DegF *H* (09/12/21 9:34 PM) Mode of Delivery (Oxygen) Room air (09/12/21 9:34 PM) room air (09/12/21 9:19 PM) Blood pressure sites Arm, right (09/12/21 9:34 PM) Temperature Route Oral (09/12/21 9:34 PM) Social History Social History Type Response Smoking Status Never smoker; Tobacc o user in household: No entered on: 07/30/14 Sex
--- OUTSIDE RECORDS SUMMARY | 2024-04-18 18:18 | XMS_ITS | Continuity of Care Document ---
Author Organization [facility] Address [address] [place] [address]- Care Team Providers Care Cold Saw Operator Name Role Phone Jin ODOM, Vicki Primary Care Physician [phone] [place] [facility] [place] 02/25/21 - 04/24/21 [facility]/[address] [address]- Attending Physician: Vicki Abdi NP Admitting Physician: [...] Medications cetirizine 10 mg oral tablet 1 tablet = 10 mg, By Mouth, Daily, PRN for allergy symptoms, # 90 tablet, 0 Refills, Maintenance, 02/26/21 13:51:00 EDT, [id number], Partial fill upon patient request if the prescription is for a schedule II opioid drug., 169, cm, ... Start Date: 02/26/21 Status: Ordered Problem List Condition Effective Dates Status Health Status Inform ant Childhood obesity(Confirmed) Active School failure(Confirmed) Active Healthcare maintenance(Confirmed) Active Social History Social History Type Response Smoking Status Never smoker; Tobacc o user in household: No entered on: 07/30/14 Sex
--- OUTSIDE RECORDS SUMMARY | 2024-04-18 18:18 | XMS_ITS | Continuity of Care Document ---
Author Organization [facility] Address [address] [place] [address]- Care Team Providers Care Systems Program Manager Name Role Phone Vicki Abdi NP Primary Care Physician [phone] Encounter [facility] [place] Date(s): 11/08/23 - 12/08/23 [facility] [address]- [place] Allergies, Adverse Reactions, Alerts No Known [...] 0 Refills, Maintenance,05/25/21 7:47:00 EDT, [facility], 169, cm, 04/02/21 11:30:00 EDT, Height Start [...] 03/17/23 17:33:00 EDT, Route to Pharmacy Electronically, [facility]/pharmacy #[id number], Partial fill upon patient request if... [...] Associate Professional Member Role: PCP Address: Address: [address] [place] [address]- Care Team Related Persons Name: NORIS FERGUSON Address: home [address] [place] [address]
--- OUTSIDE RECORDS SUMMARY | 2024-04-18 18:18 | XMS_ITS | Continuity of Care Document ---
Author Organization [facility] Address Unknown Care Team Providers Care Research Advisor Name Role Phone Jin ODOM, Vicki Primary Care Physician [phone] [place] [facility] [place]19[place] - 02/18/22 [facility] Attending Physician: Sammi Hernandez Allergies, Adverse Reactions, [...] 0 Refills, Maintenance,05/25/21 7:47:00 EDT, [facility], 169, cm, 04/02/21 11:30:00 EDT, Height Start [...] EST, 10/16/21 12:34:00 EST, ER Tablet, [facility]/pharmacy #[id number], [...]
--- OUTSIDE RECORDS SUMMARY | 2024-04-18 18:18 | XMS_ITS | Continuity of Care Document ---
Author Organization [facility] Address [address] [place] [address]- Care Team Providers Care Natural Resources Specialist Name Role Phone Jin ODOM, Vicki Primary Care Physician [phone] Encounter [facility] Date(s): 03/12/20 - 07/10/20 [facility] [address] [address]- [facility] Attending Physician: Not on Staff, Attending MD Allergies, Adverse Reactions, Alerts Substance Reaction [...]
--- OUTSIDE RECORDS SUMMARY | 2024-04-18 18:18 | XMS_ITS | Continuity of Care Document ---
Author Organization [facility] Address [address] [place] [address]- Care Team Providers Care Chemical Analytical Sampler Name Role Phone Jin ODOM, Vicki Primary Care Physician En[place] [facility] [place] Date(s): 03/17/23 - 04/16/23 [facility] [address] [place], [place] [address] Attending Physician: Sammi Hernandez Admitting Physician: AdmtrSammi [...] 0 Refills, Maintenance,05/25/21 7:47:00 EDT, [facility], 169, cm, 04/02/21 11:30:00 EDT, Height Start Date: 05/25/21 Status: Ordered diclofenac sodium 75 mg oral delayed release tablet 1 tablet = 75 mg, By Mouth, 2 times a day, with food, # 42 tablet, 0 Refills, Maintenance, 10/05/2114:49:00 EST, EC Tablet, [facility]/pharmacy #[id number], Partial fill upon patient [...] 03/17/23 17:33:00 EDT, Route to Pharmacy Electronically, [facility]/pharmacy #[id number], Partial fill upon patient [...] Associate Professional Member Role: PCP Address: Address: [address] [place] [address] Care Team Related Persons Name: NORIS FERGUSON Address: home [address] [address]
--- OUTSIDE RECORDS SUMMARY | 2024-04-18 18:18 | XMS_ITS | Continuity of Care Document ---
Author Organization [facility] Address Unknown Care Team Providers Care Contract Designer Name Role Phone Jin ODOM, Vicki Primary Care Physician [place] [facility] [place] 08/13/21 - 09/12/21 [facility] Attending Physician: AdmtrSammi Allergies, Adverse Reactions, Alerts Substance Reaction Severity [...] 0 Refills, Maintenance,05/25/21 7:47:00 EDT, [facility], 169, cm, 04/02/21 11:30:00 EDT, Height Start Date: 05/25/21 Status: Ordered Problem List Condition Effective Dates Status Health Status Inform ant Childhood obesity(Confirmed) Active School failure(Confirmed) Active Healthcare maintenance(Confirmed) Active Social History Social History Type Response Smoking Status Never smoker; Tobacc o user in household: No entered on: 07/30/14 Sex
--- OUTSIDE RECORDS SUMMARY | 2024-04-18 18:19 | XMS_ITS | Continuity of Care Document ---
Author Organization [facility] Address [address] [place] [address]- Care Team Providers Care Research Aide Name Role Phone Vicki Abdi NP Primary Care Physician En[place] [facility] [place] Date(s): 07/13/23 - 08/12/23 [facility] [address]- [place] Allergies, Adverse Reactions, Alerts No Known [...] 0 Refills, Maintenance,05/25/21 7:47:00 EDT, [facility], 169, cm, 04/02/21 11:30:00 EDT, Height Start [...] 03/17/23 17:33:00 EDT, Route to Pharmacy Electronically, [facility]/pharmacy #[id number], Partial fill upon patient request [...] Associate Professional Member Role: PCP Address: Address: [address] [place] [address]- Care Team Related Persons Name: NORIS FERGUSON Address: home [address] [place] [address]
--- OUTSIDE RECORDS SUMMARY | 2024-04-18 18:19 | XMS_ITS | Continuity of Care Document ---
Author Organization [facility] Address [address] [place] [address]- Care Team Providers Care Efficiency Analyst Name Role Phone Vicki Abdi NP Primary Care Physician En[place] [facility] [place] Date(s): 05/13/23 - 06/12/23 [facility] [address]- [place] Allergies, Adverse Reactions, Alerts No Known [...] 0 Refills, Maintenance,05/25/21 7:47:00 EDT, [facility], 169, cm, 04/02/21 11:30:00 EDT, Height Start [...] 03/17/23 17:33:00 EDT, Route to Pharmacy Electronically, [facility]/pharmacy #[id number], Partial fill upon patient request [...] Associate Professional Member Role: PCP Address: Address: [address] [place] [address]- Care Team Related Persons Name: NORIS FERGUSON Address: home [address] [place] [address]
--- OUTSIDE RECORDS SUMMARY | 2024-04-18 18:19 | XMS_ITS | Continuity of Care Document ---
Author Organization [facility] Address [address] [place] [address]- Care Team Providers Care Stock Digger Name Role Phone Jin ODOM, Vicki Primary Care Physician [place] [facility] [place](s[place] 06/10/20 - 07/10/20 [facility] [address] [place] [address]- [facility] Attending Physician: Admtr, Sammi Allergies, Adverse Reactions, Alerts Substance Reaction Severity [...]
--- OUTSIDE RECORDS SUMMARY | 2024-04-18 18:19 | XMS_ITS | Continuity of Care Document ---
Author Organization [facility] Address [address] [place] [address]- Care Team Providers Care Maintenance Superintendent Name Role Phone Jin PERMIT REVIEW ASSISTANT, Vicki Primary Care Physician Encounter [facility] Date(s): 06/11/21 - 07/11/21 [facility]/[address] [address]- Allergies, Adverse Reactions, Alerts Substance Reaction Severity [...] 0 Refills, Maintenance,05/25/21 7:47:00 EDT, [facility], 169, cm, 04/02/21 11:30:00 EDT, Height Start Date: 05/25/21 Status: Ordered Problem List Condition Effective Dates Status Health Status Inform ant Childhood obesity(Confirmed) Active School failure(Confirmed) Active Healthcare maintenance(Confirmed) Active Social History Social History Type Response Smoking Status Never smoker; Tobacc o user in household: No entered on: 07/30/14 Sex
--- OUTSIDE RECORDS SUMMARY | 2024-04-18 18:19 | XMS_ITS | Continuity of Care Document ---
Author Organization [facility] Address [address] [place] [address]- Care Team Providers Care Research Group Director Name Role Phone Jin ODOM, Vicki Primary Care Physician Encounter [facility] [place] Date(s): 04/02/21 - 05/02/21 [facility]/[address] [address]- Attending Physician: Admtr, Ar8 Allergies, Adverse Reactions, Alerts [...]
--- OUTSIDE RECORDS SUMMARY | 2024-04-18 18:19 | XMS_ITS | Continuity of Care Document ---
Author Organization [facility] Address Unknown Care Team Providers Care Engine Cleaner Name Role Phone Jin ODOM, Vicki Primary Care Physician [place] [facility] [place](s): 10/15/21 - 11/14/21 [facility] Allergies, Adverse Reactions, Alerts Substance Reaction [...] 0 Refills, Maintenance,05/25/21 7:47:00 EDT, [facility], 169, cm, 04/02/21 11:30:00 EDT, Height Start Date: 05/25/21 Status: Ordered diclofenac sodium 75 mg oral delayed release tablet 1 tablet = 75 mg, By Mouth, 2 times a day, with food, # 42 tablet, 0 Refills, Maintenance, 10/05/2114:49:00 EST, EC Tablet, [facility]/pharmacy #[id number], Partial fill upon patient request if [...] 12:34:00 EST, 10/16/21 12:34:00 EST, ER Tablet, [facility]/pharmacy #[id number], Partial fill upon patient request if [...]
== END 2024-04-18 15:56 | disposition home or self-care (01) ==
LOC: HO.HOS 14:38
PROVIDERS: Visit Provider Physician Assistant
DX: S63.404A Traumatic rupture of unspecified ligament of right ring finger at metacarpophalangeal and interphalangeal joint, initial encounter (principal)
CPT/HCPCS: 99203